=== PATIENT | female | born 1965 | race Caucasian/White ===

== ENCOUNTER → 2017-03-11 | Outpatient (CLI) | payer BC ==
[~2017-03-11] MED LIST: CALC200T3 PO; CHOL100012 PO; ESTR1PAT82 TD; HYDR1TAB12 PO; LACT1CAP37 PO; LEVO125T63 PO; LISI1TAB3 PO; MULT-658 PO; OMEG1CAP94 PO; SIMV20TA3 PO; vitamin b12 PO
== END | disposition home or self-care (01) ==
LOC: CFH 08:47
PROVIDERS: ATTEND Obstetrics & Gynecology
DX: Z12.31 Encounter for screening mammogram for malignant neoplasm of breast (principal)
CPT/HCPCS: G0202